=== PATIENT | male | born 1990 | race Caucasian/White ===

== ENCOUNTER 2019-08-15 04:11 | Emergency (ER) | payer MEDICAID ==
[~2019-08-15] VITALS: Ht 180.3 cm; Wt 75.0 kg
--- NOTE | 2019-08-15 04:15 | NUR ---
BIB [facility] FROM HOME W/ CO SI AND WORSENING DEPRESSION X ONE YEAR, "I GUESS, I JUST HAVE FAMILY IN [place]OWN AND I WAS ACCUSED OF SOMETHING I DIDN'T DO- ITS JUST TOO MUCH". DENIES PLAN OR HI. +ETOH, LAST USE APPROX FOUR HOURS AGO. HX OF DEPRESSION; DENIES HX OF SI/HI. PT ARRIVES TEARFUL BUT CALM AND COOPERATIVE WITH STAFF. ALL BELONGINGS PLACED IN BAG (1) BY TECH AND TAKEN TO LOCKER FOR SAFE KEEPING. ROOM SECURE. SITTER PRESENT.
--- NOTE | 2019-08-15 04:30 | NUR ---
PT DENIES SI/HI AT THIS TIME.
--- NOTE | 2019-08-15 05:01 | NUR ---
REPORT RECEIVED FROM JACEY BUSH. ASSUMED CARE OF PT
[2019-08-15 05:26] LABS: BASOPHILS # (AUTO) 0.05 x10^3/uL (0-0.1); BASOPHILS % (AUTO) 1 % (0-1); EOSINOPHILS # (AUTO) 0.32 x10^3/uL (0-0.4); EOSINOPHILS % (AUTO) 4 % (1-7); LYMPHOCYTES # (AUTO) 1.95 x10^3/uL (1-3.4); LYMPHOCYTES % (AUTO) 22 % (22-44); MD NO; MEAN CORPUSCULAR HEMOGLOBIN 32.7 pg (27.5-34.5); MEAN CORPUSCULAR HGB CONC 33.6 g/dL (33.2-36.2); MEAN CORPUSCULAR VOLUME 97.3 fL (81-97); MEAN PLATELET VOLUME 8.4 fL (7.4-10.4); MONOCYTES # (AUTO) 0.45 x10^3/uL (0.2-0.8); MONOCYTES % (AUTO) 5 % (2-9); NEUTROPHILS # (AUTO) 6.29 x10^3/uL (1.8-6.8); NEUTROPHILS % (AUTO) 69 % (42-75); PLATELET COUNT 208 x10^3/uL (130-400); RED BLOOD COUNT 4.65 x10^6/uL (4.38-5.82); RED CELL DISTRIBUTION WIDTH 13.5 % (9.4-14.8)
--- NOTE | 2019-08-15 05:26 | NUR ---
AWAITING TELEPSYCH WHEN PT IS SOBER
[2019-08-15 05:34] LABS: ALBUMIN 4.3 g/dL (3.4-5.0); ANION GAP 5 mmol/L (5-15); CALCIUM 8.6 mg/dL (8.5-10.1); CHLORIDE 114 mmol/L (98-107)
[2019-08-15 05:37] LABS: CREATININE 0.98 mg/dL (0.7-1.3); SALICYLATE LEVEL 3.3 mg/dL (2.8-20.0)
--- NOTE | 2019-08-15 06:34 | NUR ---
Patient resting comfortably in rkinzers with no complaints. Respirations even and unlabored. Sitter outside room.
--- NOTE | 2019-08-15 06:57 | NUR ---
REPORT RECEIVED FROM ARPITA MARI.
--- NOTE | 2019-08-15 06:59 | NUR ---
MEAL TRAY ORDERED AT THIS TIME.
--- NOTE | 2019-08-15 07:11 | NUR ---
UA SENT AT THIS TIME.
[2019-08-15 07:35] LABS: AMPHETAMINE SCREEN, URINE Negative (Negative); BARBITURATE SCREEN, URINE Negative (Negative); BENZODIAZEPINE SCREEN, URINE Negative (Negative); CANNABINOID SCREEN, URINE Positive (Negative); COCAINE SCREEN, URINE Negative (Negative); METHADONE SCREEN, URINE Negative (Negative); OPIATE SCREEN, URINE Negative (Negative)
[2019-08-15 07:57] VITALS: BP 127/83
--- NOTE | 2019-08-15 07:58 | NUR ---
PT DENIES SI/HI AT THIS TIME. PT STATES " I WANNA GO HOME."
--- NOTE | 2019-08-15 08:23 | NUR ---
Patient given discharge instructions and they have confirmed that they understand the instructions. Patient ambulatory with steady gait.
== END 2019-08-15 08:28 | disposition home or self-care (01) ==
LOC: ED 08:25
DX: F32.0 Major depressive disorder, single episode, mild (principal); F20.9 Schizophrenia, unspecified; Z72.89 Other problems related to lifestyle
CPT/HCPCS: 36415; 80048; 80307; 82040; 85025; 99283; 99284

== ENCOUNTER 2020-10-28 20:28 | Emergency (ER) | payer MEDICAID ==
[~2020-10-28] VITALS: Ht 175.3 cm; Wt 80.0 kg
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
--- NOTE | 2020-10-28 21:08 | NUR ---
PT PROVIDED URINAL, ABLE TO VOID APPROX 700ML CLEAR URINE. PT DENIES ANY ADDITIONAL NEEDS AT THIS TIME. CALL LIGHT IN REACH
[2020-10-28] MEDS ORDERED: ONDANSETRON 2MG/ML, 2ML ONE (21:27)
[2020-10-28] MEDS ORDERED: HYDROmorphone 1 MG/ML, 1ML INJ ONE (21:27)
[2020-10-28] MEDS ORDERED: ONDANSETRON 2MG/ML, 2ML IVPush ONE (21:30)
[2020-10-28] MEDS ORDERED: HYDROmorphone 1 MG/ML, 1ML INJ IV ONE (21:30)
[2020-10-28 22:06] VITALS: BP 137/72
[2020-10-28] MEDS ORDERED: OXYcodone 5 MG/5 ML ORAL.SOL UDC PO ONE (22:30)
[2020-10-28] MEDS ORDERED: OXYcodone/APAP 10/325MG TABLET ONE (22:31)
--- NOTE | 2020-10-28 23:15 | NUR ---
PT INCREASINGLY AGITATED IN ROOM, DRESSED SELF AND TO NURSING STATION REQUESTING PHONE, PT TO PHONE TO CALL FAMILY. PT THEN RETURNED TO ROOM AND REMAINS AGITIATED AND THROWING BELONGINGS AND LINENS ACROSS THE ROOM. PT CONTINUALLY SHOUTING "NOTHING HAS BEEN DONE FOR ME, WHAT THE HELL IS GOING ON. I JUST TO FUCKING LEAVE FROM HERE. MY ARM HURTS AND THIS IS RIDICULOUS". ERP AWARE AND AT BEDSIDE TO DISCUSS PLAN OF CARE WITH PT.
--- NOTE | 2020-10-28 23:23 | NUR ---
PT REFUSING TO STAY IN ED FOR ORTHO CONSULT AND FURTHER DIAGNOSTICS, INCLUDING CT. PT STATES "I AM READY TO LEAVE NOW, IM GOING. I DONT NEED THIS. I WILL JUST START FRESH IN THE MORNING". PT AGREES TO SPLINT PLACEMENT PRIOR TO LEAVING AGAINST MEDICAL ADVICE FROM ED. AMA PAPERWORK SIGNED BY PT AND EPR, THIS RN WITNESS. ALL RISKS EXPLAINED AND PT VERBALIZED UNDERSTANDING OF RISKS OF LEAVING HOSPITAL AGAINST MEDICAL ADVICE. PT A&OX4, AMBULATORY WITH STEADY GAIT. MOTHER AT BEDSIDE. THIS RN WILL SPLINT PT AND PT AMA FROM ED.
--- NOTE | 2020-10-28 23:36 | NUR ---
sugar tong splint applied to right arm, pt tolerated well.
--- NOTE | 2020-10-28 23:45 | NUR ---
PT LEFT ED AMA, NO D/C PAPERWORK PROVIDED TO PT. LEFT PRIOR TO RECEIVING. "I DONT NEED ANYTHING FROM THIS PLACE"
[2020-10-29] MEDS ORDERED: OXYcodone/APAP 10/325MG TABLET PO ONE
== END 2020-10-28 23:55 | disposition left against medical advice (07) ==
LOC: ED 20:48
DX: S52.571A Other intraarticular fracture of lower end of right radius, initial encounter for closed fracture (principal); S52.611A Displaced fracture of right ulna styloid process, initial encounter for closed fracture; F17.210 Nicotine dependence, cigarettes, uncomplicated; V17.0XXA Pedal cycle driver injured in collision with fixed or stationary object in nontraffic accident, initial encounter; Y93.89 Activity, other specified; Y92.89 Other specified places as the place of occurrence of the external cause; Y99.8 Other external cause status
CPT/HCPCS: 29125; 73080; 73100; 99284; 99406; J1170; J2405

== ENCOUNTER 2020-10-29 10:41 | Emergency (ER) | payer MEDICAID ==
[~2020-10-29] VITALS: Ht 175.3 cm; Wt 74.7 kg
[2020-10-29] MEDS ORDERED: MORPHINE SULFATE 4 MG/ML, 1ML ONE (11:56)
[2020-10-29] MEDS ORDERED: ONDANSETRON 2MG/ML, 2ML ONE (11:56)
[2020-10-29] MEDS ORDERED: morphine SULFATE 10 MG/ML, 1ML IV ONE (12:00)
[2020-10-29] MEDS ORDERED: ONDANSETRON 2MG/ML, 2ML IVPush ONE (12:00)
--- NOTE | 2020-10-29 12:07 | NUR ---
PT MEDICATED FOR PAIN. R ARM SPLINT REMOVED WITH BETI DAVIS. PT RPT'S 05/28 PAIN. R ARM IS SWOLLEN WITH POSS DEFORMITY TO THE WRIST LOWER FOREARM. EDP UPDATED.
[2020-10-29] MEDS ORDERED: HYDROmorphone 2 MG/ML, 1ML ONE (12:25)
[2020-10-29] MEDS: HYDROmorphone 1 MG/ML, 1ML INJ IVPush PRN ×2 (12:27→13:02)
--- NOTE | 2020-10-29 12:28 | NUR ---
PT MEDICATED FOR 1010 RA PAIN. WILL REASSESS.
--- NOTE | 2020-10-29 12:35 | NUR ---
PT TO CT
--- NOTE | 2020-10-29 12:55 | NUR ---
BACK FROM CT. MONITOR IN PLACE.
--- NOTE | 2020-10-29 14:05 | NUR ---
PT REQUESTING MORE PAIN MEDS. EDP NOTIFIED. WILL MEDICATE PT AFTER ORTHO SEE'S PT.
--- NOTE | 2020-10-29 14:30 | NUR ---
2 LARGE ICE PACK'S APPLIED TO R ARM FOR PAIN. PT TOLERATED WELL. PT AWARE WE ARE WAITING FOR ORTHO AND THEN WILL MEDICATE FOR PAIN.
--- NOTE | 2020-10-29 14:45 | NUR ---
BREAK RN: PT RESTING IN ROOM. VS STABLE. CALL LIGHT IN PLACE. WILL CONTINUE TO MONITOR WHILE PRIMARY RN IS ON BREAK.
[2020-10-29] MEDS ORDERED: HYDROmorphone 1 MG/ML, 1ML INJ ONE (14:55)
[2020-10-29] MEDS ORDERED: HYDROmorphone 1 MG/ML, 1ML INJ IV ONE (15:00)
--- NOTE | 2020-10-29 15:00 | NUR ---
PT MEDICATED FOR 10/10 RIGHT ARM PAIN.
--- NOTE | 2020-10-29 15:11 | NUR ---
PT CRYING IN ROOM IN PAIN. PT REPORTS HIS PAIN 7/10 NOW AFTER PAIN MEDS[address] FLANAGAN AWARE.
--- NOTE | 2020-10-29 15:19 | NUR ---
BREAK RN: DR FLANAGAN TO BEDSIDE. PROVIDE AWARE OF PAIN STATUS AND VS. REPORT GIVEN TO JACEY PIERRE. ORTHO IN ROOM.
[2020-10-29] MEDS ORDERED: NALOXONE 0.4 MG/ML, 1ML IVPush ONE (15:30)
[2020-10-29 15:43] VITALS: BP 127/83
== END 2020-10-29 16:24 | disposition home or self-care (01) ==
LOC: ED 12:16
DX: S52.571A Other intraarticular fracture of lower end of right radius, initial encounter for closed fracture (principal); Z72.0 Tobacco use; V19.9XXA Pedal cyclist (driver) (passenger) injured in unspecified traffic accident, initial encounter; Y93.89 Activity, other specified; Y92.830 Public park as the place of occurrence of the external cause; Y99.8 Other external cause status
CPT/HCPCS: 73200; 96374; 96375; 96376; 99285; J1170; J2270; J2405

== ENCOUNTER 2020-10-31 11:57 | Emergency (ER) | payer MEDICAID ==
[~2020-10-31] VITALS: Ht 175.3 cm; Wt 75.0 kg
--- NOTE | 2020-10-31 12:15 | NUR ---
Pt waiting in room for MD assessment.
[2020-10-31] MEDS ORDERED: OXYcodone/APAP 10/325MG TABLET PO ONE (12:30)
[2020-10-31] MEDS ORDERED: OXYcodone/APAP 10/325MG TABLET ONE (12:33)
--- NOTE | 2020-10-31 12:35 | NUR ---
Pt medicated as ordered for pain at this time.
--- NOTE | 2020-10-31 12:38 | NUR ---
Xray being taken in room at this time.
[2020-10-31] MEDS ORDERED: CLIN300C9 PO (12:44)
[2020-10-31] MEDS ORDERED: HYDR-1067 PO (12:44)
--- NOTE | 2020-10-31 13:25 | NUR ---
Pt states pain decreased to 5/10 after pain assistant media planner on reassessment. Friend out in waiting room to take pt home.
[2020-10-31 13:27] VITALS: BP 129/79
== END 2020-10-31 13:30 | disposition home or self-care (01) ==
LOC: ED 12:37
DX: S52.91XA Unspecified fracture of right forearm, initial encounter for closed fracture (principal); R07.9 Chest pain, unspecified; X58.XXXA Exposure to other specified factors, initial encounter; Y93.89 Activity, other specified; Y92.89 Other specified places as the place of occurrence of the external cause; Y99.8 Other external cause status
CPT/HCPCS: 71045; 99283

== ENCOUNTER 2020-11-10 15:32 | Emergency (ER) | payer MEDICAID ==
[~2020-11-10] VITALS: Ht 175.3 cm; Wt 74.1 kg
[~2020-11-10 15:32] MED LIST: CLIN300C9 PO; HYDR-1067 PO
[2020-11-10 15:50] VITALS: BP 125/68
--- NOTE | 2020-11-10 17:55 | NUR ---
MECHANICAL ENGINEERING PROFESSOR: NOT IN LOBBY
--- NOTE | 2020-11-10 18:31 | NUR ---
PATIENT ACCESS REPRESENTATIVE: CALLED NO ANSWER
--- NOTE | 2020-11-10 19:00 | NUR ---
discharge coordinator: not in lobby
== END 2020-11-10 19:15 | disposition left against medical advice (07) ==
LOC: ED 19:00
DX: M25.511 Pain in right shoulder (principal); Z53.21 Procedure and treatment not carried out due to patient leaving prior to being seen by health care provider